=== PATIENT | female | born 1960 | race Caucasian/White ===

== ENCOUNTER 2022-09-06 17:31 | Observation (INO) | payer OTHER ==
[2022-09-06 18:39] LABS: Hematocrit 34.3 % (36.0-45.0); Lymphocytes % 13.4 % (15.3-44.8); MCV 89.8 fL (80-100); MPV 7.7 fL (7.6-11.3); RBC Red Blood Cell Count 3.82 M/uL (3.86-4.86)
[2022-09-06] MEDS ORDERED: ONDANSETRON 4 MG/2 ML VIAL ONE ×2 (19:00→20:42)
[2022-09-06] MEDS ORDERED: NA CHLORIDE 0.9% 1,000 ML ONE (19:00)
[2022-09-06 19:01] LABS: Albumin 3.2 g/dL (3.4-5.0); Bilirubin Total 1.4 mg/dL (0.2-1.0); Protein, Total 6.9 g/dL (6.4-8.2)
[2022-09-06 19:05] LABS: Potassium 2.4 mmol/L (3.5-5.1)
[2022-09-06] MEDS ORDERED: POTASSIUM CL SA 10 MEQ TAB PO ONE (20:10)
[2022-09-06] MEDS ORDERED: KCL 20 MEQ/100 mL IVPB 100 ML IV ONE (20:11)
[2022-09-06] MEDS ORDERED: NA CHLORIDE 0.9% 500 ML ONE (20:11)
--- NOTE | 2022-09-06 21:06 | RAD REPORT ---
EXAM DESCRIPTION: CTAbdomen Pelvis W Contrast - 09/06/2022 8:53 pm CLINICAL HISTORY: lower abdmominal pain, vomiting COMPARISON: <Comparisons> TECHNIQUE: CT of the abdomen and pelvis was performed. All CT scans are performed using dose optimization technique as appropriate and may include automated exposure control or mA/KV adjustment according to patient size. FINDINGS: Lower chest: No acute abnormality. Liver: Cirrhotic liver morphology. Hepatic steatosis. Biliary: No biliary ductal dilatation. Stomach: Linear foreign body in the stomach measuring 2 cm. This is along the nondependent wall of th e stomach. Duodenum: No significant focal abnormality. Pancreas: 11 mm cystic lesion at the pancreatic body. Question 5 mm lesion at the pancreatic tail. No pancreatic ductal dilatation. Spleen: Splenomegaly Adrenal: No suspicious lesions. Kidney/ureter: No hydronephrosis. No renal calculi. Retroperitoneum: No retroperitoneal adenopathy. Vascular: No aneurysm. Splenorenal shunt. Bowel: No significant focal abnormality. No bowel obstruction. Prior appendectomy. Peritoneum: Small volume pelvic free fluid. Bladder: Grossly unremarkable. Reproductive: Hysterectomy. Bones: No acute fracture. Moderate disc height loss at L5-S1. Other: Surgical changes in the pelvis. IMPRESSION: No acute intra-abdominal or pelvic finding. Cirrhotic liver morphology with evidence of portal hypertension. Linear foreign body in the gastric body along the nondependent wall of uncertain etiology. It may be postsurgical versus ingested. Cystic pancreatic body lesion may represent a small intraductal papillary mucinous neoplasm. No prior s are available for comparison. These may represent intraductal papillary mucinous neoplasms (IPMN) w hich are a lesion of low malignant potential. There frequently followed with a 12 month MRCP in the a bsence of any other prior imaging.
--- NOTE | 2022-09-06 21:23 | EDPHYS ---
Physician Documentation [facility] Name: Melissa Garcia Age: 62 yrs Sex: Female : 1960 Arrival Date: 09/06/2022 Time: 17:36 Bed 20 Private MD: VERENICE Physician Vickey Amador HPI: 09/06 17:51 This 62 yrs old Female presents to ER via Wheelchair with complaints of Nausea/Vomiting.jmm 17:51 The patient presents to the emergency department with nausea, diarrhea, abdominal pain, jmm of the suprapubic area. Onset: The symptoms/episode began/occurred gradually, this morning. Possible causes: unknown. The symptoms are aggravated by nothing. The symptoms are alleviated by nothing. Associated signs and symptoms: Pertinent positives: abdominal pain, Pertinent negatives: fever. The patient has not experienced similar symptoms in the past. Historical: - Allergies: 17:43 PENICILLINS; ss 17:43 Keflex; ss 17:43 amlodipine; ss 17:43 Cipro; ss - PMHx: 17:43 pulmonary HTN; Rheumatoid arthritis; Hypothyroidism; ss - Immunization history:: Adult Immunizations unknown. - Social history:: Smoking status: unknown. ROS: 17:51 Constitutional: Negative for fever, chills, and weight loss, Cardiovascular: Negative jmm for chest pain, palpitations, and edema, Respiratory: Negative for shortness of breath, cough, wheezing, and pleuritic chest pain. 17:51 Back: Negative for injury and pain, Skin: Negative for injury, rash, and discoloration, Neuro: Negative for headache, weakness, numbness, tingling, and seizure. 17:51 Abdomen/GI: Positive for abdominal pain. 17:51 All other systems are negative. Exam: 17:51 Constitutional: This is a well developed, well nourished patient who is awake, alert, jmm and in no acute distress. Head/Face: atraumatic. Eyes: EOMI, no conjunctival erythema appreciated ENT: Moist Mucus Membranes Neck: Trachea midline, Supple Chest/axilla: Normal chest wall appearance and motion. Cardiovascular: Regular rate and rhythm. No edema appreciated Respiratory: Normal respirations, no respiratory distress appreciated 17:51 Back: Normal ROM Skin: General appearance color normal MS/ Extremity: Moves all extremities, no obvious deformities appreciated, no edema noted to the lower extremities Neuro: Awake and alert Psych: Behavior is normal, Mood is normal, Patient is cooperative and pleasant 17:51 Abdomen/GI: Inspection: abdomen appears normal, Bowel sounds: normal, Palpation: soft, mild abdominal tenderness, in the suprapubic area. Vital Signs: 17:42 Resp 16; Weight 90.72 kg; Height 5 ft. 4 in. (162.56 cm); ss 17:45 BP 132 / 70; Pulse 83; Temp 98.9(O); Pulse Ox 97% on R/A; ss 19:30 BP 144 / 66; Pulse 82; Resp 18 S; Pulse Ox 98% on R/A; ha1 20:30 BP 140 / 66; Pulse 81; Resp 18 S; Pulse Ox 98% on R/A; ha1 21:30 BP 138 / 66; Pulse 81; Resp 18 S; Pulse Ox 97% on R/A; ha1 22:30 BP 141 / 67; Pulse 80; Resp 17 S; Pulse Ox 97% on R/A; ha1 23:00 BP 140 / 67; Pulse 80; Resp 16 S; Pulse Ox 97% on R/A; ha1 17:42 Body Mass Index 34.33 (90.72 kg, 162.56 cm) ss MDM: 17:51 Patient medically screened. [facility] 19:59 Transition of care: After a detail discussion of the patient's case, care is [facility] transferred to [facility]. 21:19 Differential diagnosis: Nonspecific abd pain, gastritis, cholecystitis, pancreatitis, snw appendicitis. Data reviewed: vital signs, nurses notes, lab test result(s), radiologic studies. Consideration of Admission/Observation Patient was admitted/placed on observation. Management of patient was discussed with the following: Hospitalist: Judy Wallace. Care significantly affected by the following chronic conditions: RA, Cirrhosis, pulmonary htn, hypothyroidism. Counseling: I had a detailed discussion with the patient and/or guardian regarding: the historical points, exam findings, and any diagnostic results supporting the discharge/admit diagnosis, the presence of at least one elevated blood pressure reading (>120/80) during this emergency department visit, lab results, radiology results, the need for outpatient follow up, for definitive care, to return to the emergency department if symptoms worsen or persist or if there are any questions or concerns that arise at home. Counseling: I had a detailed discussion with the patient and/or guardian regarding: the need for further work-up and treatment in the hospital. Response to treatment: There is no appreciated change of the patient's symptoms at this time, remains nauseated. Special discussion:. 09/06 17:55 Order name: CBC with Diff; Complete Time: 18:40 [facility] 09/06 17:55 Order name: CMP; Complete Time: 19:07 [facility] 09/06 17:55 Order name: Lipase; Complete Time: 19:07 [facility] 09/06 17:55 Order name: CT Abd/Pelvis - IV Contrast Only; Complete Time: 21:10 [facility] 09/06 19:36 Order name: Urine Microscopic Only [facility] 09/06 21:24 Order name: SARS RAPID; Complete Time: 22:23 [facility] 09/06 17:55 Order name: IV Saline Lock; Complete Time: 18:53 [facility] 09/06 17:55 Order name: Labs collected and sent; Complete Time: 18:53 [facility] 09/06 19:21 Order name: EKG - Nurse/Tech; Complete Time: 22:49 jm Administered Medications: 19:01 Drug: NS 0.9% 1000 ml Route: IV; Rate: 1 bolus; Site: right antecubital; ph 23:00 Follow up: Response: No adverse reaction; IV Status: Completed infusion; IV Intake: ha1 1000ml 19:02 Drug: Zofran (Ondansetron) 4 mg Route: IVP; Site: right antecubital; ph 19:02 Follow up: Response: No adverse reaction ph 20:35 Drug: Potassium Chloride 20 mEq Route: IV; Rate: calculated rate; Site: right ha1 antecubital; 23:00 Follow up: Response: No adverse reaction; IV Status: Infusion continued; IV Intake: [id number] 20:43 Drug: Zofran (Ondansetron) 4 mg Route: IVP; Site: right antecubital; ha1 21:10 Follow up: Response: No adverse reaction; Nausea is decreased ha1 21:46 Drug: Potassium Chloride Liquid 40 mEq Route: PO; ha1 22:10 Follow up: Response: No adverse reaction ha1 Disposition Summary: 09/06/22 21:22 Hospitalization Ordered Hospitalization Status: Observation snw Provider: Ruth Clement Location: Telemetry/MedSurg (observation) snw Condition: Stable snw Problem: an acute exacerbation snw Symptoms: are unchanged snw Bed/Room Type: Standard snw Room Assignment: 218(09/06/22 22:21) vc1 Diagnosis - Nausea with vomiting, unspecified snw - Hypokalemia snw Forms: - Medication Reconciliation Form snw - SBAR form snw Signatures: Dispatcher [employer] EDMS Vianey Granado, BAR HOST/HOSTESS-C BAR HOST/HOSTESS-Csnw Jasper Smith PA PA jmm Smirch, Shelby, RN RN ss Shante Aguilar RN RN ph Viky Hernandez RN RN vc1 Petrona Becker RN RN ha1 Corrections: (The following items were deleted from the chart) 22:21 21:22 snw 1
--- NOTE | 2022-09-06 21:23 | ER ---
Nurse's Notes [facility] Name: Melissa Garcia Age: 62 yrs Sex: Female : 1960 Arrival Date: 09/06/2022 Time: 17:36 Bed 20 Private MD: Diagnosis: Nausea with vomiting, unspecified;Hypokalemia Presentation: 09/06 17:42 Chief complaint: Patient states: N/V/D with abd cramping that began at 0300 this morning. Coronavirus screen: Client denies travel out of the [place] in the last 14 days. Ebola Screen: Patient denies exposure to infectious person. Patient denies travel to an Ebola-affected area in the 21 days before illness onset. Initial Sepsis Screen: Does the patient meet any 2 criteria? No. Patient's initial sepsis screen is negative. Does the patient have a suspected source of infection? No. Patient's initial sepsis screen is negative. Risk Assessment: Do you want to hurt yourself or someone else? Patient reports no desire to harm self or others. Onset of symptoms was September 06, 2022. 17:42 Method Of Arrival: Wheelchair ss 17:42 Acuity: BELLA 3 ss Historical: - Allergies: 17:43 PENICILLINS; ss 17:43 Keflex; ss 17:43 amlodipine; ss 17:43 Cipro; ss - PMHx: 17:43 pulmonary HTN; Rheumatoid arthritis; Hypothyroidism; ss - Immunization history:: Adult Immunizations unknown. - Social history:: Smoking status: unknown. Screenin:02 [facility] ED Fall Risk Assessment (Adult) History of falling in the last 3 months, ph including since admission No falls in past 3 months (0 pts) Confusion or Disorientation No (0 pts) Intoxicated or Sedated No (0 pts) Impaired Gait No (0 pts) Mobility Assist Device Used No (0 pt) Altered Elimination No (0 pt) Score/Fall Risk Level 0 - 2 = Low Risk Oriented to surroundings, Maintained a safe environment, Hourly rounding (assess needs \T\ fall precautionary measures) done. Abuse screen: Denies threats or abuse. Denies injuries from another. Nutritional screening: No deficits noted. Tuberculosis screening: No symptoms or risk factors identified. Assessment: 19:02 General: Appears in no apparent distress. comfortable, Behavior is calm, cooperative, ph appropriate for age, Denies fever, chills. Pain: Complains of pain in right lower quadrant and left lower quadrant. Neuro: Level of Consciousness is awake, alert, obeys commands, Oriented to person, place, time, situation. Cardiovascular: Capillary refill < 3 seconds in bilateral fingers Patient's skin is warm and dry. Respiratory: Airway is patent Respiratory effort is even, unlabored, Respiratory pattern is regular, symmetrical. GI: Abdomen is non-distended, Reports lower abdominal pain, diarrhea, nausea, vomiting. Derm: Skin is healthy with good turgor, Skin is pink, warm \T\ dry. Musculoskeletal: Circulation, motion, and sensation intact. Range of motion: intact in all extremities. 19:30 General: Appears comfortable, Behavior is calm, cooperative. Pain: Complains of pain in ha1 abdomen Pain does not radiate. Pain currently is 4 out of 10 on a pain scale. at worst was 8 out of 10 on a pain scale. Quality of pain is described as crampy. Neuro: Level of Consciousness is awake, alert, obeys commands, Oriented to person, place, time, situation. Cardiovascular: Capillary refill < 3 seconds Patient's skin is warm and dry. Respiratory: Airway is patent Respiratory effort is even, unlabored, Respiratory pattern is regular, symmetrical. GI: Abdomen is non-distended, obese, Bowel sounds present X 4 quads. Reports lower abdominal pain, diarrhea, nausea, vomiting. : No signs and/or symptoms were reported regarding the genitourinary system. EENT: No signs and/or symptoms were reported regarding the EENT system. Musculoskeletal: Circulation, motion, and sensation intact. 20:15 Reassessment: Patient and/or family updated on plan of care and expected duration. Pain ha1 level reassessed. Patient is alert, oriented x 3, equal unlabored respirations, skin warm/dry/pink. reports nausea. notified care provider. 20:43 Reassessment: going to CT. ha1 21:30 Reassessment: Patient and/or family updated on plan of care and expected duration. Pain ha1 level reassessed. Patient is alert, oriented x 3, equal unlabored respirations, skin warm/dry/pink. care provider and family member in the room. 22:30 Reassessment: Patient and/or family updated on plan of care and expected duration. Pain ha1 level reassessed. Patient is alert, oriented x 3, equal unlabored respirations, skin warm/dry/pink. Patient states feeling better. Patient states symptoms have improved. 23:30 Reassessment: Patient and/or family updated on plan of care and expected duration. Pain ha1 level reassessed. Patient is alert, oriented x 3, equal unlabored respirations, skin warm/dry/pink. Vital Signs: 17:42 Resp 16; Weight 90.72 kg; Height 5 ft. 4 in. (162.56 cm); ss 17:45 BP 132 / 70; Pulse 83; Temp 98.9(O); Pulse Ox 97% on R/A; ss 19:30 BP 144 / 66; Pulse 82; Resp 18 S; Pulse Ox 98% on R/A; ha1 20:30 BP 140 / 66; Pulse 81; Resp 18 S; Pulse Ox 98% on R/A; ha1 21:30 BP 138 / 66; Pulse 81; Resp 18 S; Pulse Ox 97% on R/A; ha1 22:30 BP 141 / 67; Pulse 80; Resp 17 S; Pulse Ox 97% on R/A; ha1 23:00 BP 140 / 67; Pulse 80; Resp 16 S; Pulse Ox 97% on R/A; ha1 17:42 Body Mass Index 34.33 (90.72 kg, 162.56 cm) ED Course: 17:36 Patient arrived in ED. rg4 17:43 Triage completed. ss 17:43 Arm band placed on right wrist. 17:46 Jasper Smith PA is PHCP. [facility] 17:46 Vickey Amador MD is Attending Physician. [facility] 17:46 Shante Aguilar, LYN is Primary Nurse. ph 18:35 Initial lab(s) drawn, by nv, sent to lab. Inserted saline lock: 22 gauge in right ph antecubital area, using aseptic technique. Blood collected. 19:04 Patient has correct armband on for positive identification. Placed in gown. Bed in low ph position. Call light in reach. Side rails up X 1. Pulse ox on. NIBP on. Door closed. Noise minimized. Warm blanket given. 19:13 Primary Nurse role handed off by Shante Aguilar, LYN mw2 19:19 Petrona Becker, RN is Primary Nurse. ha1 19:47 Inserted saline lock: 22 gauge in left wrist, using aseptic technique. ll3 20:54 CT Abd/Pelvis - IV Contrast Only In Process Unspecified. EDMS 21:10 PHCP role handed off by Jasper Smith PA snw 21:10 Vianey Granado FNP-C is PHCP. snw 21:21 Ruth Clement MD is Hospitalizing Provider. snw 21:46 SARS RAPID Sent. ha1 23:48 No provider procedures requiring assistance completed. ha1 23:48 Patient admitted, IV remains in place. ha1 Administered Medications: 19:01 Drug: NS 0.9% 1000 ml Route: IV; Rate: 1 bolus; Site: right antecubital; ph 23:00 Follow up: Response: No adverse reaction; IV Status: Completed infusion; IV Intake: ha1 1000ml 19:02 Drug: Zofran (Ondansetron) 4 mg Route: IVP; Site: right antecubital; ph 19:02 Follow up: Response: No adverse reaction ph 20:35 Drug: Potassium Chloride 20 mEq Route: IV; Rate: calculated rate; Site: right ha1 antecubital; 23:00 Follow up: Response: No adverse reaction; IV Status: Infusion continued; IV Intake: [id number] 20:43 Drug: Zofran (Ondansetron) 4 mg Route: IVP; Site: right antecubital; ha1 21:10 Follow up: Response: No adverse reaction; Nausea is decreased ha1 21:46 Drug: Potassium Chloride Liquid 40 mEq Route: PO; ha1 22:10 Follow up: Response: No adverse reaction ha1 Medication: 19:04 VIS not applicable for this client. ph Intake: 23:00 IV: 70ml; Total: 70ml. ha1 23:00 IV: 1000ml; Total: 1070ml. ha1 Outcome: 21:22 Decision to Hospitalize by Provider. snw 23:48 Patient left the ED. ha1 23:48 Admitted to Med/surg accompanied by tech, via wheelchair, with chart. ha1 23:48 Condition: stable ha1 23:48 Discharge instructions given to patient, Instructed on the need for admit, Demonstrated understanding of instructions. Signatures: Dispatcher [employer] EDLA Vianey Granado FNP-C MANAGER FOREIGN-Csnw Jasper Smith PA PA jmm Smirch, Shelby, RN RN ss Shante Aguilar RN RN Elena Park 4 Ceasar Garner 2 Apryl Piña RN RN 3 Petrona Becker RN RN ha1 Corrections: (The following items were deleted from the chart) 20:44 20:43 Reassessment: Patient and/or family updated on plan of care and expected ha1 duration. Pain level reassessed. Patient is alert, oriented x 3, equal unlabored respirations, skin warm/dry/pink. reports nausea. notified care provider ha1
--- NOTE | 2022-09-06 21:46 | P.HP ---
Certification for Inpatient Patient admitted to: Observation With expected LOS: <2 Midnights Patient will require the following post-hospital care: None Practitioner: I am a practitioner with admitting privileges, knowledge of patient current condition, hospital course, and medical plan of care. Services: Services provided to patient in accordance with Admission requirements found in Title 42 Section 412.3 of the Code of Federal Regulations Patient History Date of Service: 09/06/22 Reason for admission: Dehydration, Hypokalemia History of Present Illness: Patient is a 62 year old female with past medical history of cirrhosis with portal hypertension, RA, hypothyroidism who presented to the emergency department with complaints of abdominal cramping, nausea, vomiting, and diarrhea that began in the middle of the night. Patient reports that this happens to her frequently. She sees a caddymaster in [place]. Today her potassium is 2.4. CT abdomen pelvis did not show any new findings. She received IV and PO potassium, IV fluids, and antiemetics in the ED. Patient is admitted for observation. Home medications list reviewed: Yes - Past Medical/Surgical History Diabetic: No -: Cirrhosis -: Pulmonary Hypertension -: Rheumatoid Arthritis -: Hypothyroidism -: Cholecystectomy -: Appendectomy -: Hysterectomy -: Pancreatic Biopsies Psychosocial/ Personal History: Patient is . - Family History Family History: Reviewed- Non-Contributory - Social History Smoking Status: Never smoker Alcohol use: No CD- Drugs: No Caffeine use: No Place of Residence: Home Review of Systems Gastrointestinal: Nausea, Vomiting, Abdominal Pain, Diarrhea Physical Examination - Vital Signs Temperature: 98.9 F Blood Pressure: 140/66 Pulse: 81 Respirations: 18 Pulse Ox (%): 98 - Physical Exam General: Alert, In no apparent distress HEENT: Atraumatic, Other (Dry mucous membranes), EOMI, Sclerae nonicteric Neck: Supple, 2+ carotid pulse no bruit Respiratory: Clear to auscultation bilaterally, Normal air movement Cardiovascular: Regular rate/rhythm, Normal S1 S2 Gastrointestinal: Normal bowel sounds, No tenderness Musculoskeletal: No tenderness Integumentary: No rashes Neurological: Normal speech, Normal affect - Studies Laboratory Data (last 24 hrs) 09/06/22 16:25: Sodium 143, Potassium 2.4 L*, BUN 7, Creatinine 0.50 L, Glucose 105, Total Bilirubin 1.4 H, AST 68 H, ALT 40, Alkaline Phosphatase 83, Lipase 133 09/06/22 16:25: WBC 7.50, Hgb 12.0, Hct 34.3 L, Plt Count 152 Assessment and Plan - Problems (Diagnosis) (1) Hypokalemia Current Visit: Yes Status: Acute (2) Dehydration Current Visit: Yes Status: Acute (3) Cirrhosis of liver Current Visit: Yes Status: Chronic Qualifiers: Hepatic cirrhosis type: unspecified hepatic cirrhosis (4) Portal hypertension Current Visit: Yes Status: Chronic (5) Hypothyroidism Current Visit: Yes Status: Chronic Qualifiers: Hypothyroidism type: acquired Qualified Code(s): E03.9 - Hypothyroidism, unspecified - Plan Patient is admitted for observation for further management of hypokalemia/dehydration. Continue with IV fluids, IV potassium, and PO potassium as tolerated. Antiemetics as needed. Clear liquid diet, advance as tolerated. Monitor on telemetry. No EKG changes noted at this point. Reconcile and continue home medications. Full code. Discharge Plan: Home Plan to discharge in: 24 Hours - Advance Directives Does patient have a Living Will: No Does patient have a Durable POA for Healthcare: No - Code Status/Comfort Care Code Status Assessed: Yes Code Status: Full Code Physician Review: Patient Assessed, Agree with Above Assessment and Plan Critical Care: No Time Spent Managing Pts Care (In Minutes): 50
[2022-09-06 22:13] LABS: SARS-CoV-2 Antigen Rapid Res Negative (Negative)
[2022-09-06 23:42] VITALS: BMI 33.8
[2022-09-06] MEDS ORDERED: TRAZODONE 50 MG TABLET PO PRN (23:45)
[2022-09-06] MEDS: NS KCL 40MEQ 40 MEQ/1,000 ML BAG IV SCH (23:45)
[2022-09-06] MEDS ORDERED: POTASSIUM 25 MEQ EFFERV TAB PO ONE (23:45)
[2022-09-07 00:03] VITALS: O2SAT 98
[2022-09-07] MEDS ORDERED: KCL 20 MEQ/100 mL IVPB 100 ML IV ONE ×2 (00:12→05:40)
[2022-09-07] MEDS ORDERED: NA CHLORIDE 0.9% 1,000 ML ONE (00:13)
[2022-09-07] MEDS ORDERED: POTASSIUM 25 MEQ EFFERV TAB PO ONE ×2 (00:38→10:26)
[2022-09-07] MEDS ORDERED: PROMETHAZINE INJ 25 MG/ML AMP IV ONE (01:14)
[2022-09-07] MEDS: ONDANSETRON 4 MG/2 ML VIAL IV PRN ×2 (03:03→09:23)
[2022-09-07] MEDS ORDERED: ACETAMINOPHEN 500 MG TAB PO ONE ×2 (04:28→16:21)
[2022-09-07 06:53] LABS: Hematocrit 33.2 % (36.0-45.0); Lymphocytes % 13.7 % (15.3-44.8); MCV 91.8 fL (80-100); MPV 8.2 fL (7.6-11.3); RBC Red Blood Cell Count 3.62 M/uL (3.86-4.86)
[2022-09-07 07:16] LABS: Phosphorus 1.5 mg/dL (2.5-4.9)
[2022-09-07] MEDS ORDERED: HYDROCORTISONE SUC 100 MG INJ IV ONE (10:26)
[2022-09-07] MEDS ORDERED: METOCLOPRAMIDE 10 MG/2mL INJ IV SCH ×2 (12:00→16:30)
[2022-09-07] MEDS: NS KCL 40MEQ 40 MEQ/1,000 ML BAG IV SCH (12:33)
[2022-09-07 14:46] LABS: Potassium 3.3 mmol/L (3.5-5.1)
[2022-09-07] MEDS ORDERED: IBUPROFEN 400 MG TAB PO ONE (19:53)
[2022-09-07 20:23] VITALS: BP 146/73
[2022-09-07 21:29] VITALS: TEMP 99.8
== END 2022-09-07 21:15 | disposition home or self-care (01) ==
LOC: ER 17:31 → ERHOLD 21:40 → 2ND 23:03
PROVIDERS: ADMIT Hospitalist; ATTEND Hospitalist
DX: E86.0 Dehydration (principal); E87.6 Hypokalemia; K74.60 Unspecified cirrhosis of liver; K76.6 Portal hypertension; M06.9 Rheumatoid arthritis, unspecified; E03.9 Hypothyroidism, unspecified; Z20.822 Contact with and (suspected) exposure to COVID-19
CPT/HCPCS: 96365; 96361; 85025 ×2; 80048 ×2; 36415; 83735; 84100; 83690; 80053; 82533; 82088; 84244; 74177; 96375; 99285; 96366; 87811; Q9967; J2765 ×2; J2550; J3480 ×3; J7040; J7030 ×2; J1720; J2405 ×4; G0378

== ENCOUNTER 2022-09-14 10:46 | Inpatient (IN) | payer OTHER ==
[2022-09-14] MEDS ORDERED: TENECTEPLASE 50 MG/10 ML VIAL IV ONE ×2 (11:02→11:05)
--- NOTE | 2022-09-14 11:10 | RAD REPORT ---
EXAM DESCRIPTION: CT - Ct Stroke Brain Wo Cont - 09/14/2022 11:00 am CLINICAL HISTORY: dysarthria COMPARISON: none TECHNIQUE: Computed axial tomography of the head was obtained. All CT scans are performed using dose optimization technique as appropriate and may include automated exposure control or mA/KV adjustment according to patient size. FINDINGS: An intracranial bleed is not seen . The ventricles are normal in caliber. No extra-axial fluid collection is noted. No significant hypodensity within the brain noted Fluid within the sinuses/ mastoids is not seen. IMPRESSION: No acute intracranial abnormality is seen. If patient's symptoms persist MRI of the bra in would be recommended Dr Cazares of the emergency room was notified at 11:05 a.m. September 14, 2022
[2022-09-14 11:22] LABS: Absolute Lymphocytes (CBC) 1.2 K/uL (0.7-4.9); Hematocrit 38.4 % (36.0-45.0); Lymphocytes % 18.1 % (15.3-44.8); MCV 90.5 fL (80-100); MPV 8.8 fL (7.6-11.3); RBC Red Blood Cell Count 4.24 M/uL (3.86-4.86)
[2022-09-14 11:28] LABS: Protime INR 1.32
[2022-09-14 11:56] LABS: Urine Blood Trace-intact (Negative); Urine Glucose Negative (Negative); Urine Protein Negative (Negative); Urine Specific Gravity 1.015 (1.005-1.030); Urine pH 7.5 (5.0-7.0)
--- NOTE | 2022-09-14 11:59 | RAD REPORT ---
EXAM DESCRIPTION: Herlinda Single View09/14/2022 11:30 am CLINICAL HISTORY: Hypertension slurred speech COMPARISON: none FINDINGS: The lungs appear clear of acute infiltrate. The heart is borderline enlarged IMPRESSION: No acute abnormalities displayed
[2022-09-14 12:36] LABS: Albumin 3.2 g/dL (3.4-5.0); Bilirubin Direct 0.4 mg/dL (0-0.2); Bilirubin Total 1.4 mg/dL (0.2-1.0); Magnesium 2.2 mg/dL (1.6-2.4); Protein, Total 6.5 g/dL (6.4-8.2); Troponin High Sensitivity 6.9 pg/mL (<58.9)
[2022-09-14 12:37] LABS: Potassium 2.5 mmol/L (3.5-5.1)
--- NOTE | 2022-09-14 12:40 | RAD REPORT ---
EXAM DESCRIPTION: Roni Angio09/14/2022 12:18 pm CLINICAL HISTORY: Slurred speech COMPARISON: None TECHNIQUE: 50 cc Isovue 370 was administered intravenously. 3D MIP reconstruction performed All CT scans are performed using dose optimization technique as appropriate and may include automated exposure control or mA/KV adjustment according to patient size. FINDINGS: Great vessels unremarkable The common carotid, internal carotid and external carotid arteries bilaterally do not demonstrate mago que. The distal right vertebral artery is hypoplastic and appears to terminate into the PICA No dissection seen. IMPRESSION: No significant abnormality is displayed NASCET criteria used. Mild 0-49% stenosis Moderate 50-69% stenosis Severe 70-99% stenosis
--- NOTE | 2022-09-14 12:41 | ER ---
Nurse's Notes [facility] Name: Melissa Garcia Age: 62 yrs Sex: Female : 1960 Arrival Date: 09/14/2022 Time: 10:47 Bed 7 Private MD: Diagnosis: Aphasia;Dysarthria;UTI/ Urinary tract infection, site not specified Presentation: 09/14 10:48 Onset of symptoms was September 14, 2022 at 09:00. aa5 10:48 An acute neurological deficit is present. Pre-hospital glucose is not applicable to aa5 this patient. Initial Sepsis Screen: Does the patient meet any 2 criteria? HR > 90 bpm. Does the patient have a suspected source of infection? No. Patient's initial sepsis screen is negative. Risk Assessment: Do you want to hurt yourself or someone else? Patient reports no desire to harm self or others. 10:48 Acuity: BELLA 2 aa5 10:48 Chief complaint: Patient states: woke up at 0830 and began having difficulty speaking aa5 at 0900. Pt states "I am having trouble speaking and finding words". Speech is clear but slow. No numbness/tingling, communications engineering technician are weak bilaterally, no arm/leg drift noted, no facial droop noted. Recently admitted for diarrhea 8 days ago. Coronavirus screen: At this time, the client does not indicate any symptoms associated with coronavirus-19. Ebola Screen: Patient denies travel to an Ebola-affected area in the 21 days before illness onset. 10:48 Method Of Arrival: Wheelchair aa5 Triage Assessment: 11:20 The onset of the patients symptoms was September 14, 2022 at 09:00. General: Appears in hb no apparent distress. Behavior is calm, cooperative. Pain: Denies pain. EENT: No signs and/or symptoms were reported regarding the EENT system. Neuro: Level of Consciousness is awake, alert, obeys commands, Oriented to person, place, time, situation, Reports difficulty speaking. Cardiovascular: Patient's skin is warm and dry. Respiratory: Respiratory effort is even, unlabored, Respiratory pattern is regular, symmetrical. GI: No signs and/or symptoms were reported involving the gastrointestinal system. : No signs and/or symptoms were reported regarding the genitourinary system. Derm: Skin is pink, warm \\T\\ dry. Musculoskeletal: No signs and/or symptoms reported regarding the musculoskeletal system. Stroke Activation: Symptom onset < 3 hours Physician: Stroke Attending; Name: ; Notified At: ; Arrived At: Physician: Chief Stroke Resident; Name: ; Notified At: ; Arrived At: Physician: Stroke Resident; Name: ; Notified At: ; Arrived At: Physician: ED Attending; Name: ; Notified At: ; Arrived At: Physician: ED Resident; Name: ; Notified At: ; Arrived At: Historical: - Allergies: 10:49 amlodipine; ll1 10:49 Cipro; ll1 10:49 Keflex; ll1 10:49 PENICILLINS; ll1 - PMHx: 10:49 Hypothyroidism; pulmonary HTN; Rheumatoid Arthritis; ll1 - Immunization history:: Adult Immunizations up to date. - Social history:: Smoking status: . Screenin:18 [facility] ED Fall Risk Assessment (Adult) Score/Fall Risk Level 3 or more points = High hb Risk Oriented to surroundings, Maintained a safe environment. Abuse screen: Denies threats or abuse. Denies injuries from another. Nutritional screening: No deficits noted. Tuberculosis screening: No symptoms or risk factors identified. 11:22 Patient has been NPO before screening. The patient is alert, able to follow commands. hb The patient exhibits slurred or garbled speech. Provider notified of indication for Speech Therapy consult. 13:22 Patient has been NPO before screening. The patient is alert, able to follow commands. hb The patient does not exhibit slurred or garbled speech The patient is not exhibiting difficulty speaking. The patient does not exhibit difficulty understanding words. The patient is able to swallow own secretions with no drooling or need for suction. Patient tolerated one teaspoon of water. No drooling, immediate coughing, gurgling, or clearing of the throat was noted. The patient tolerated 90mL of water. No drooling, immediate coughing, gurgling, or clearing of the throat was noted. The patient passed the bedside swallow screening. Oral medications may be given as ordered. Contact Physician for further diet orders. Assessment: 10:55 Reassessment: Pt to CT via stretcher, accompanied by Lupis Pickard RN. aa5 11:20 General: See triage assessment. hb 11:30 Reassessment: TNK administered at 1118, see paper chart for VS and neuro check hb flowsheet. 12:14 Reassessment: Reassessment: Patient appears in no apparent distress at this time. hb Patient and/or family updated on plan of care and expected duration. Pain level reassessed. 13:21 Reassessment: Dysarthria resolved, repeated swallow screen, pt passed. Water provided hb as requested. Pt tolerated well. 14:01 Reassessment: Dr. Granda at bedside. hb 14:10 Reassessment: Per Dr. Ortiz only ice chips for now. hb 15:30 Reassessment: Patient appears in no apparent distress at this time. Patient and/or hb family updated on plan of care and expected duration. Pain level reassessed. Vital Signs: 10:48 BP 146 / 71; Pulse 95; Resp 18 S; Temp 97.8(TE); Pulse Ox 99% on R/A; aa5 11:09 Weight 86 kg (M); hb 11:23 BP 131 / 75; Pulse 90; Resp 17; Pulse Ox 99% on R/A; hb 13:03 BP 139 / 78; Pulse 83; Resp 15; Pulse Ox 100% on R/A; Pain 0/10; hb 16:45 BP 129 / 77; Pulse 86; Resp 14; Pulse Ox 100% on R/A; Pain 0/10; hb NIH Stroke Scale Scores: 10:56 NIHSS Score: 2 kdr 11:18 NIHSS Score: 4 hb 11:19 NIHSS Score: 4 kdr ED Course: 10:47 Patient arrived in ED. as 10:48 Benton Cazares MD is Attending Physician. kdr 10:49 Arm band placed on Patient placed in an exam room, on a stretcher. ll1 10:56 Rodrick Bonilla, RN is Primary Nurse. ll1 11:00 Triage completed. aa5 11:09 Inserted saline lock: 22 gauge in right antecubital area, using aseptic technique. hb Blood collected. 11:18 Patient has correct armband on for positive identification. hb 11:23 Primary Nurse role handed off by Rodrick Bonilla, RN hb 11:23 Charisse Suarez, LYN is Primary Nurse. hb 12:14 Urine Culture Sent. hb 12:39 Shady Granda MD is Hospitalizing Provider. kdr 13:28 SARS RAPID Sent. hb 14:32 Cleaned of incontinence. Linen changed. Brief replaced. hb 15:42 Cleaned of incontinence. Linen changed. Brief replaced. hb 16:44 No provider procedures requiring assistance completed. Patient admitted, IV remains in hb place. 09/15 07:16 Primary Nurse role handed off by Charisse Suarez, RN bp 07:16 Valentin Marcum, RN is Primary Nurse. bp 09:42 Cleaned of incontinence. Linen changed. Purewick was not in place - applied purewick ld1 back to proper position. Cleaned of incontinence, Repositioned patient. Pt denies concerns at this time. at bedside, pt trying to rest at this time. Administered Medications: 09/14 11:18 Drug: TNK FOR STROKE - Tenecteplase 0.25 mg/kg {Co-Signature: shola1 (Rodrick Bonilla RN).} Route: IV; Rate: per protocol; Site: right antecubital; 13:33 Drug: Bactrim (trimethoprim-sulfamethoxazole) (160 mg-800 mg (DS) 1 tablet Route: PO; hb 13:55 Drug: Potassium Chloride 20 mEq Route: IV; Rate: calculated rate; Site: right hb antecubital; 13:55 Drug: Potassium Chloride Liquid 40 mEq Route: PO; hb Medication: 11:22 VIS not applicable for this client. hb Point of Care Testing: Blood Glucose: 10:49 Blood Glucose: 118 mg/dL; hb Ranges: Outcome: 12:40 Decision to Hospitalize by Provider. kdr 16:44 Admitted to ER Hold. Please see [facility] for further documentation. hb 16:44 Condition: stable 16:44 Instructed on the need for admit, Demonstrated understanding of instructions. 09/15 13:53 Patient left the ED. bp NIH Stroke Scale - NIH Stroke Score Date: 09/14/2022 Time: 10:56 Total Score = 2 1a. Level of Consciousness (LOC) - 0(Alert) 1b. Level of Consciousness (LOC) (Month \\T\\ Age) - 0(Both) 1c. LOC Commands (Open \\T\\ Closes Eyes/Computer Education Teacher) - 0(Both) 2. Best Gaze (Lateral Gaze Paresis) - 0(Normal) 3. Visual Field Loss - 0(No visual loss) 4. Facial Palsy - 0(Normal) 5a. Left Arm: Motor (10-second hold) - 0(No drift) 5b. Right Arm: Motor (10-second hold) - 0(No drift) 6a. Left Leg: Motor (5-second hold - always test supine) - 0(No drift) 6b. Right Leg: Motor (5-second hold - always test supine) - 0(No drift) 7. Limb Ataxia (finger/nose \\T\\ heel/thomson - test with eyes open) - 0(Absent) 8. Sensory Loss (pinprick arms/legs/face) - 0(Normal) 9. Best Language: Aphasia (description/naming/reading) - 1(Mild to moderate aphasia) 10. Dysarthria (speech clarity - read or repeat words) - 1(Mild to Moderate) 11. Extinction and Inattention (visual/tactile/auditory/spatial/personal) - 0(No abnormality) Initials: [facility] NIH Stroke Scale - NIH Stroke Score Date: 09/14/2022 Time: :18 Total Score = 4 1a. Level of Consciousness (LOC) - 0(Alert) 1b. Level of Consciousness (LOC) (Month \\T\\ Age) - 0(Both) 1c. LOC Commands (Open \\T\\ Closes Eyes/Computer Education Teacher) - 0(Both) 2. Best Gaze (Lateral Gaze Paresis) - 0(Normal) 3. Visual Field Loss - 0(No visual loss) 4. Facial Palsy - 0(Normal) 5a. Left Arm: Motor (10-second hold) - 0(No drift) 5b. Right Arm: Motor (10-second hold) - 1(Drift) 6a. Left Leg: Motor (5-second hold - always test supine) - 0(No drift) 6b. Right Leg: Motor (5-second hold - always test supine) - 1(Drift) 7. Limb Ataxia (finger/nose \\T\\ heel/thomson - test with eyes open) - 0(Absent) 8. Sensory Loss (pinprick arms/legs/face) - 0(Normal) 9. Best Language: Aphasia (description/naming/reading) - 1(Mild to moderate aphasia) 10. Dysarthria (speech clarity - read or repeat words) - 1(Mild to Moderate) 11. Extinction and Inattention (visual/tactile/auditory/spatial/personal) - 0(No abnormality) Initials: NIH Stroke Scale - NIH Stroke Score Date: 09/14/2022 Time: : Total Score = 4 1a. Level of Consciousness (LOC) - 0(Alert) 1b. Level of Consciousness (LOC) (Month \\T\\ Age) - 0(Both) 1c. LOC Commands (Open \\T\\ Closes Eyes/Computer Education Teacher) - 0(Both) 2. Best Gaze (Lateral Gaze Paresis) - 0(Normal) 3. Visual Field Loss - 0(No visual loss) 4. Facial Palsy - 0(Normal) 5a. Left Arm: Motor (10-second hold) - 0(No drift) 5b. Right Arm: Motor (10-second hold) - 1(Drift) 6a. Left Leg: Motor (5-second hold - always test supine) - 0(No drift) 6b. Right Leg: Motor (5-second hold - always test supine) - 1(Drift) 7. Limb Ataxia (finger/nose \\T\\ heel/thomson - test with eyes open) - 0(Absent) 8. Sensory Loss (pinprick arms/legs/face) - 0(Normal) 9. Best Language: Aphasia (description/naming/reading) - 1(Mild to moderate aphasia) 10. Dysarthria (speech clarity - read or repeat words) - 1(Mild to Moderate) 11. Extinction and Inattention (visual/tactile/auditory/spatial/personal) - 0(No abnormality) Initials: kdr Signatures: Benton Cazares MD MD kdr Martinez, Amelia as Calderon, Audri, LYN RN aa5 Charisse Suarez RN RN hb Valentin Marcum RN RN bp Lewis, Lynsay, RN RN ll1 Tory Hollins RN RN ld1 Rodrick Bonilla RN ll1 Corrections: (The following items were deleted from the chart) 09/14 14:07 12:14 Reassessment: hb hb
--- NOTE | 2022-09-14 12:41 | EDPHYS ---
Physician Documentation [facility] Name: Melissa Garcia Age: 62 yrs Sex: Female : 1960 Arrival Date: 09/14/2022 Time: 10:47 Bed 7 Private MD: ED Physician Benton Cazares HPI: 09/14 17:49 This 62 yrs old Female presents to ER via Wheelchair with complaints of Trouble kdr Talking, Weakness. 17:49 The patient presents to the emergency department with weakness of the right upper kdr extremity, right lower extremity, that is mild, a speech or higher order brain function problem, aphasia, that is mild, difficulty standing, difficult walking. Onset: The symptoms/episode began/occurred suddenly, at 09:00. 17:50 Context: occurred at home, occurred while the patient was at rest, eating. Associated kdr signs and symptoms: The patient has no apparent associated signs or symptoms. Severity of symptoms: At their worst the symptoms were moderate in the emergency department the symptoms are unchanged. Patient's baseline: Neuro: alert and fully oriented, Motor: no deficits, Ambulation: walks without assistance, Speech: normal for age, The patient has a previous history of Hypothyroidism, pulmonary hypertension, rheumatoid arthritis. Current symptoms: confusion, dysphasia. The patient has not experienced similar symptoms in the past. The patient has not recently seen a physician. Historical: - Allergies: 10:49 amlodipine; ll1 10:49 Cipro; ll1 10:49 Keflex; ll1 10:49 PENICILLINS; ll1 - PMHx: 10:49 Hypothyroidism; pulmonary HTN; Rheumatoid Arthritis; ll1 - Immunization history:: Adult Immunizations up to date. - Social history:: Smoking status: . ROS: 17:50 Constitutional: Negative for fever, chills, and weight loss, Eyes: Negative for injury, kdr pain, redness, and discharge, Neck: Negative for injury, pain, and swelling, Cardiovascular: Negative for chest pain, palpitations, and edema, Respiratory: Negative for shortness of breath, cough, wheezing, and pleuritic chest pain, Abdomen/GI: Negative for abdominal pain, nausea, vomiting, diarrhea, and constipation, Back: Negative for injury and pain, : Negative for injury, bleeding, discharge, and swelling, MS/Extremity: Negative for injury and deformity, Skin: Negative for injury, rash, and discoloration, Psych: Negative for depression, anxiety, suicide ideation, homicidal ideation, and hallucinations, Allergy/Immunology: Negative for hives, rash, and allergies, Endocrine: Negative for neck swelling, polydipsia, polyuria, polyphagia, and marked weight changes, Hematologic/Lymphatic: Negative for swollen nodes, abnormal bleeding, and unusual bruising. 17:50 Neuro: Positive for speech changes, weakness, of the right arm and right leg. Exam: 17:50 Constitutional: This is a well developed, well nourished patient who is awake, alert, kdr and in no acute distress. Head/Face: Normocephalic, atraumatic. Eyes: Pupils equal round and reactive to light, extra-ocular motions intact. Lids and lashes normal. Conjunctiva and sclera are non-icteric and not injected. Cornea within normal limits. Periorbital areas with no swelling, redness, or edema. Neck: Trachea midline, no thyromegaly or masses palpated, and no cervical lymphadenopathy. Supple, full range of motion without nuchal rigidity, or vertebral point tenderness. No Meningismus. Chest/axilla: Normal chest wall appearance and motion. Nontender with no deformity. No lesions are appreciated. Cardiovascular: Regular rate and rhythm with a normal S1 and S2. No gallops, murmurs, or rubs. Normal PMI, no JVD. No pulse deficits. Respiratory: Lungs have equal breath sounds bilaterally, clear to auscultation and percussion. No rales, rhonchi or wheezes noted. No increased work of breathing, no retractions or nasal flaring. Abdomen/GI: Soft, non-tender, with normal bowel sounds. No distension or tympany. No guarding or rebound. No evidence of tenderness throughout. Back: No spinal tenderness. No costovertebral tenderness. Full range of motion. Skin: Warm, dry with normal turgor. Normal color with no rashes, no lesions, and no evidence of cellulitis. MS/ Extremity: Pulses equal, no cyanosis. Neurovascular intact. Full, normal range of motion. Neuro: Awake and alert, GCS 15, oriented to person, place, time, and situation. Cranial nerves II-XII grossly intact. Motor strength 5/5 in all extremities. Sensory grossly intact. Cerebellar exam normal. Normal gait. Psych: Awake, alert, with orientation to person, place and time. Behavior, mood, and affect are within normal limits. Vital Signs: 10:48 BP 146 / 71; Pulse 95; Resp 18 S; Temp 97.8(TE); Pulse Ox 99% on R/A; aa5 11:09 Weight 86 kg (M); hb 11:23 BP 131 / 75; Pulse 90; Resp 17; Pulse Ox 99% on R/A; hb 13:03 BP 139 / 78; Pulse 83; Resp 15; Pulse Ox 100% on R/A; Pain 0/10; hb 16:45 BP 129 / 77; Pulse 86; Resp 14; Pulse Ox 100% on R/A; Pain 0/10; hb NIH Stroke Scale Scores: 10:56 NIHSS Score: 2 kdr 11:18 NIHSS Score: 4 hb 11:19 NIHSS Score: 4 kdr MDM: 12:40 Patient medically screened. kdr 17:50 Data reviewed: vital signs, nurses notes, lab test result(s), EKG, radiologic studies. [facility] 09/14 10:54 Order name: Basic Metabolic Panel [facility] 09/14 10:54 Order name: CBC with Diff 09/14 10:54 Order name: Hepatic Function [facility] 09/14 10:54 Order name: High Sensitivity Troponin kdr 09/14 10:54 Order name: Magnesium kdr 09/14 10:54 Order name: Protime (+inr) [facility] 09/14 10:54 Order name: Ptt, Activated kdr 09/14 11:26 Order name: CBC with Automated Diff; Complete Time: 11:38 EDMS 09/14 11:28 Order name: Protime (+INR); Complete Time: 11:38 EDMS 09/14 11:28 Order name: PTT, Activated Partial Thromb; Complete Time: 11:38 EDMS 09/14 11:38 Order name: Urine Culture kdr 09/14 11:56 Order name: Urine Dipstick-Ancillary; Complete Time: 12:14 EDMS 09/14 12:38 Order name: Basic Metabolic Panel; Complete Time: 13:42 EDMS 09/14 12:38 Order name: Liver (Hepatic) Function; Complete Time: 13:42 EDMS 09/14 10:54 Order name: CT Stroke Brain w/o Contrast [facility] 09/14 10:54 Order name: Stroke CXR 1 View kdr 09/14 11:10 Order name: CT; Complete Time: 11:38 [facility] 09/14 11:19 Order name: CT Head Angio [facility] 09/14 11:19 Order name: CT Neck Angio [facility] 09/14 11:59 Order name: RAD; Complete Time: 12:14 [facility] 09/14 12:38 Order name: Troponin High Sensitivity; Complete Time: 13:42 [facility] 09/14 12:38 Order name: Magnesium; Complete Time: 13:42 [facility] 09/14 12:40 Order name: CT; Complete Time: 13:42 [facility] 09/14 12:43 Order name: CT; Complete Time: 13:42 [facility] 09/14 12:59 Order name: SARS RAPID eb 09/14 13:39 Order name: SARS-COV-2 Antigen Rapid; Complete Time: 13:42 [facility] 09/15 02:57 Order name: Lipid Profile [facility] 09/15 10:15 Order name: MRI [facility] 09/15 10:24 Order name: MRI [facility] 09/15 10:27 Order name: MRI [facility] 09/14 10:54 Order name: EKG; Complete Time: 10:55 [facility] 09/14 10:54 Order name: Accucheck; Complete Time: 11: [facility] 09/14 10:54 Order name: Cardiac monitoring; Complete Time: 11: [facility] 09/14 10:54 Order name: EKG - Nurse/Tech; Complete Time: 11: [facility] 09/14 10:54 Order name: IV Saline Lock; Complete Time: 11: [facility] 09/14 10:54 Order name: Labs collected and sent; Complete Time: 11: [facility] 09/14 10:54 Order name: NPO; Complete Time: 11: [facility] 09/14 10:54 Order name: O2 Per Protocol; Complete Time: 11: [facility] 09/14 10:54 Order name: O2 Sat Monitoring; Complete Time: 11: [facility] 09/14 10:54 Order name: Stroke Swallow Screen; Complete Time: 11: [facility] 09/14 11:38 Order name: Urine Dipstick-Ancillary (obtain specimen); Complete Time: 11:55 [facility] 09/14 11:46 Order name: Labs - recollect needed: recollect green top/ hemolyzed per lab; Complete eb Time: 12:14 Administered Medications: 11:18 Drug: TNK FOR STROKE - Tenecteplase 0.25 mg/kg {Co-Signature: ll1 (Rodrick Bonilla hb RN).} Route: IV; Rate: per protocol; Site: right antecubital; 13:33 Drug: Bactrim (trimethoprim-sulfamethoxazole) (160 mg-800 mg (DS) 1 tablet Route: PO; hb 13:55 Drug: Potassium Chloride 20 mEq Route: IV; Rate: calculated rate; Site: right hb antecubital; 13:55 Drug: Potassium Chloride Liquid 40 mEq Route: PO; hb Point of Care Testing: Blood Glucose: 10:49 Blood Glucose: 118 mg/dL; hb Ranges: Critical Glucose Levels:Adult <50 mg/dl or >400 mg/dl <40 mg/dl or >180 mg/dl Disposition Summary: 09/14/22 12:40 Hospitalization Ordered Hospitalization Status: Inpatient Admission kdr Provider: Shady Granda Condition: Fair kdr Problem: new kdr Symptoms: have improved kdr Bed/Room Type: Standard kdr Location: Telemetry/MedSurg (Inpatient)(09/15/22 12:13) [facility] Room Assignment: 218(09/15/22 12:13) ja Diagnosis - Aphasia kdr - Dysarthria kdr - UTI/ Urinary tract infection, site not specified kdr Forms: - Medication Reconciliation Form kdr - SBAR form kdr NIH Stroke Scale - NIH Stroke Score Date: 09/14/2022 Time: 10:56 Total Score = 2 1a. Level of Consciousness (LOC) - 0(Alert) 1b. Level of Consciousness (LOC) (Month \T\ Age) - 0(Both) 1c. LOC Commands (Open \T\ Closes Eyes/Naturalist) - 0(Both) 2. Best Gaze (Lateral Gaze Paresis) - 0(Normal) 3. Visual Field Loss - 0(No visual loss) 4. Facial Palsy - 0(Normal) 5a. Left Arm: Motor (10-second hold) - 0(No drift) 5b. Right Arm: Motor (10-second hold) - 0(No drift) 6a. Left Leg: Motor (5-second hold - always test supine) - 0(No drift) 6b. Right Leg: Motor (5-second hold - always test supine) - 0(No drift) 7. Limb Ataxia (finger/nose \T\ heel/thomson - test with eyes open) - 0(Absent) 8. Sensory Loss (pinprick arms/legs/face) - 0(Normal) 9. Best Language: Aphasia (description/naming/reading) - 1(Mild to moderate aphasia) 10. Dysarthria (speech clarity - read or repeat words) - 1(Mild to Moderate) 11. Extinction and Inattention (visual/tactile/auditory/spatial/personal) - 0(No abnormality) Initials: [facility] NIH Stroke Scale - NIH Stroke Score Date: 09/14/2022 Time: :18 Total Score = 4 1a. Level of Consciousness (LOC) - 0(Alert) 1b. Level of Consciousness (LOC) (Month \T\ Age) - 0(Both) 1c. LOC Commands (Open \T\ Closes Eyes/Naturalist) - 0(Both) 2. Best Gaze (Lateral Gaze Paresis) - 0(Normal) 3. Visual Field Loss - 0(No visual loss) 4. Facial Palsy - 0(Normal) 5a. Left Arm: Motor (10-second hold) - 0(No drift) 5b. Right Arm: Motor (10-second hold) - 1(Drift) 6a. Left Leg: Motor (5-second hold - always test supine) - 0(No drift) 6b. Right Leg: Motor (5-second hold - always test supine) - 1(Drift) 7. Limb Ataxia (finger/nose \T\ heel/thomson - test with eyes open) - 0(Absent) 8. Sensory Loss (pinprick arms/legs/face) - 0(Normal) 9. Best Language: Aphasia (description/naming/reading) - 1(Mild to moderate aphasia) 10. Dysarthria (speech clarity - read or repeat words) - 1(Mild to Moderate) 11. Extinction and Inattention (visual/tactile/auditory/spatial/personal) - 0(No abnormality) Initials: NIH Stroke Scale - NIH Stroke Score Date: 09/14/2022 Time: Total Score = 4 1a. Level of Consciousness (LOC) - 0(Alert) 1b. Level of Consciousness (LOC) (Month \T\ Age) - 0(Both) 1c. LOC Commands (Open \T\ Closes Eyes/Naturalist) - 0(Both) 2. Best Gaze (Lateral Gaze Paresis) - 0(Normal) 3. Visual Field Loss - 0(No visual loss) 4. Facial Palsy - 0(Normal) 5a. Left Arm: Motor (10-second hold) - 0(No drift) 5b. Right Arm: Motor (10-second hold) - 1(Drift) 6a. Left Leg: Motor (5-second hold - always test supine) - 0(No drift) 6b. Right Leg: Motor (5-second hold - always test supine) - 1(Drift) 7. Limb Ataxia (finger/nose \T\ heel/thomson - test with eyes open) - 0(Absent) 8. Sensory Loss (pinprick arms/legs/face) - 0(Normal) 9. Best Language: Aphasia (description/naming/reading) - 1(Mild to moderate aphasia) 10. Dysarthria (speech clarity - read or repeat words) - 1(Mild to Moderate) 11. Extinction and Inattention (visual/tactile/auditory/spatial/personal) - 0(No abnormality) Initials: kdr Signatures: Dispatcher [employer] EDMS Benton Cazares MD MD [facility] Charisse Suarez, RN RN Aureliano Redmond RN RN ja1 Emily Zaragoza Lynsay, RN RN ll1 Rodrick Bonilla RN ll1 Corrections: (The following items were deleted from the chart) 16:44 12:40 Telemetry/MedSurg (Inpatient) kdr 16:44 12:40 kdr 09/15 12:13 09/14 16:44 [facility] ER HOLD hb ja1 09/15 12:13 09/14 16:44 ERHOLD- hb ja1
--- NOTE | 2022-09-14 12:42 | RAD REPORT ---
EXAM DESCRIPTION: CTHead angio09/14/2022 12:17 pm CLINICAL HISTORY: aphasia COMPARISON: None TECHNIQUE: CT angiogram of the head was obtained. 3D MIPS reconstruction performed. All CT scans are performed using dose optimization technique as appropriate and may include automated exposure control or mA/KV adjustment according to patient size. FINDINGS: The basilar, internal carotid, anterior cerebral, middle cerebral and posterior cerebral a rteries do not demonstrate a significant abnormality An aneurysm is not seen A significant stenosis is not noted. IMPRESSION: No acute abnormality is displayed
--- NOTE | 2022-09-14 12:51 | P.HP ---
Certification for Inpatient With expected LOS: >2 Midnights Patient will require the following post-hospital care: Rehabilitation Practitioner: I am a practitioner with admitting privileges, knowledge of patient current condition, hospital course, and medical plan of care. Services: Services provided to patient in accordance with Admission requirements found in Title 42 Section 412.3 of the Code of Federal Regulations Patient History Date of Service: 09/14/22 Reason for admission: Stroke History of Present Illness: Age 62 previously well visiting here from [place] Sudden onset of right-sided expressive dysphagia and weakness of her right arm woke up around 830 developed the symptoms around 930 while eating Jell-O also has some weakness on her right leg came here to the emergency room and was treated with TNK currently her speech is about 90% better some mild expressive dysphagia she has weakness of her right arm and right leg right arm seems to be little worse she can only abduct to about 90 degrees some slight drift of both right arm and right leg however no other deficit detected very alert responsive cooperative denies any problems with swallowing Allergies ambrisentan [From Letairis] Allergy (Verified 09/07/22 01:48) Hives/Rash amlodipine [From Norvasc] Allergy (Verified 09/07/22 01:48) Hives/Rash cephalexin [From Keflex] Allergy (Verified 09/07/22 01:48) Hives/Rash ciprofloxacin [From Cipro] Allergy (Verified 09/07/22 01:48) Hives/Rash Penicillins Allergy (Verified 09/06/22 23:45) Rash Home Medications: Ascorbic Acid [Vitamin C] 1,000 mg PO DAILY 09/07/22 Calcium Carbonate [Calcium] 1,200 mg PO DAILY 09/07/22 Diclofenac Sodium [Voltaren Arthritis Pain] 20 gm TOP PRN 09/07/22 Levothyroxine Sodium [Levothyroxine] 175 mcg PO DAILY 09/07/22 Loratadine [Claritin*] 10 mg PO DAILY 09/07/22 Macitentan [Opsumit] 10 mg PO NOON 09/07/22 Metoclopramide HCl 5 mg PO ACHS #120 tab 09/07/22 Metoclopramide [Reglan*] 5 mg PO ACHS #120 tab 09/07/22 Nortriptyline HCl [Pamelor] 50 mg PO BEDTIME 09/07/22 Ondansetron [Zofran] 4 mg PO Q6H PRN #20 tab 09/07/22 Potassium Chloride 2 tab PO BID 09/07/22 Riociguat [Adempas] 2.5 mg PO TID 09/07/22 Spironolactone 50 mg PO BID 09/07/22 Topiramate 100 mg PO TID 09/07/22 Zinc Gluconate [Zinc] 50 mg PO DAILY 09/07/22 predniSONE [Deltasone] 20 mg PO DAILY #5 tab 09/07/22 - Past Medical/Surgical History Diabetic: No -: Cirrhosis -: Pulmonary Hypertension, severe on triple therapy including prostacyclin IV -: Rheumatoid Arthritis -: Hypothyroidism -: Stroke SP TNK 09/14/2022 -: Cholecystectomy -: Appendectomy -: Hysterectomy -: Pancreatic Biopsies Psychosocial/ Personal History: Patient is . - Family History Father -: Heart disease Mother -: Other (see notes) Notes: Dementia - Social History Alcohol use: No CD- Drugs: No Caffeine use: Yes Review of Systems 10-point ROS is otherwise unremarkable General: Weakness Physical Examination - Vital Signs Temperature: 97.8 F Blood Pressure: 146/71 Pulse: 95 Respirations: 18 Pulse Ox (%): 99 (RA) - Physical Exam General: Alert, In no apparent distress, Oriented x3 HEENT: Atraumatic Neck: Supple, 2+ carotid pulse no bruit Respiratory: Clear to auscultation bilaterally, Normal air movement Cardiovascular: No edema, Regular rate/rhythm Gastrointestinal: Normal bowel sounds, Soft and benign Musculoskeletal: No clubbing, No swelling, No warmth Neurological: Cranial nerves 3-12 intact, Abnormal speech (Slight expressive dysphagia which is improved), Abnormal strength (Mild weakness of the right arm and the right leg with a slight drift level 1) - Studies Laboratory Data (last 24 hrs) 09/14/22 11:55: Sodium 141, Potassium 2.5 L*, BUN 4 L, Creatinine 0.65, Glucose 106, Magnesium 2.2, Total Bilirubin 1.4 H, AST 45 H, ALT 38, Alkaline Phosphatase 73 09/14/22 11:10: PT 14.5 H, INR 1.32, APTT 31.6 09/14/22 11:10: WBC 6.80, Hgb 13.1, Hct 38.4, Plt Count 130 L Assessment and Plan - Problems (Diagnosis) (1) Stroke Current Visit: Yes Status: Acute Plan: Age 62 admitted with expressive dysphagia and right-sided weakness expressive dysphagia has improved significantly he has still still has some weakness right arm more so than the right leg is now able to communicate had difficulty finding her words initially patient is s/p TNK patient is on diuretics has severe pulmonary hypertension managed by physician in [place] on triple therapy for pulmonary hypertension no pulmonary complaints plan to admit n.p.o. speech evaluation possible rehab neurology consult MRI no abnormalities detected on CT scans Qualifiers: Precerebral and cerebral artery: unspecified cerebral artery - Advance Directives Does patient have a Living Will: Yes Does patient have a Durable POA for Healthcare: Yes
[2022-09-14] MEDS: NA CHLORIDE 0.9% 1,000 ML IV SCH (13:00)
[2022-09-14] MEDS ORDERED: SMZ./TMP. 800/160 MG TABLET ONE (13:34)
[2022-09-14 13:39] LABS: SARS-CoV-2 Antigen Rapid Res Negative (Negative)
[2022-09-14] MEDS ORDERED: POTASSIUM CL SA 10 MEQ TAB PO ONE (13:47)
[2022-09-14] MEDS ORDERED: NA CHLORIDE 0.9% 1,000 ML ONE (13:47)
[2022-09-14] MEDS ORDERED: KCL 20 MEQ/100 mL IVPB 100 ML IV ONE (13:48)
[2022-09-14 16:52] VITALS: BMI 32.5
[2022-09-15] MEDS ORDERED: NA CHLORIDE 0.9% 1,000 ML ONE (01:50)
[2022-09-15] MEDS: NA CHLORIDE 0.9% 1,000 ML IV SCH ×3 (02:20→20:36)
[2022-09-15] MEDS ORDERED: LORazepam 2 MG/ML VIAL ONE (08:00)
[2022-09-15] MEDS ORDERED: LORazepam 2 MG/ML VIAL IV PRN (08:08)
--- NOTE | 2022-09-15 10:14 | RAD REPORT ---
EXAM DESCRIPTION: MRI - Brain W/Wo Cont - 09/15/2022 9:48 am CLINICAL HISTORY: Right-sided weakness aphasia COMPARISON: head CT September 14, 2022 TECHNIQUE: Axial, sagittal, and coronal magnetic images of the brain were obtained. 18 cc MultiHance administered intravenously FINDINGS: Mild signal within periventricular, deep and subcortical white matter probably ischemic ch anges secondary to small vessel disease The ventricles are normal in caliber. Diffusion-weighted/ ADC mapping sequences do not demonstrate evidence of an acute infarction. No abnormal enhancement within the brain is seen. An extra-axial fluid collection is not noted. Fluid within the sinuses/mastoids is not seen IMPRESSION: No acute intracranial abnormality displayed
--- NOTE | 2022-09-15 10:24 | RAD REPORT ---
EXAM DESCRIPTION: MRI - MRA Neck W/Wo Cont - 09/15/2022 9:49 am CLINICAL HISTORY: Right-sided weakness/ aphasia COMPARISON: CT September 14, 2022 TECHNIQUE: Magnetic resonance angiogram of the neck was performed. 19 cc MultiHance was administered intravenously. 3D MIPS reconstruction performed FINDINGS: Great vessels unremarkable The common carotid, internal carotid and external carotid arteries do not demonstrate significant mago que. Distal right vertebral artery is hypoplastic. The vertebral arteries appear unremarkable No dissections seen IMPRESSION: No significant abnormality is displayed NASCET criteria used. Mild 0-49% stenosis Moderate 50-69% stenosis Severe 70-99% stenosis
--- NOTE | 2022-09-15 10:26 | RAD REPORT ---
EXAM DESCRIPTION: MRI - MRA Head Wo Cont - 09/15/2022 9:48 am CLINICAL HISTORY: Right-sided weakness/ aphasia COMPARISON: CT September 14, 2022 TECHNIQUE: Magnetic resonance angiogram was performed. 3D MIPS reconstruction performed FINDINGS: Evaluation is somewhat limited secondary to motion artifact. Distal internal carotid, basilar, and anterior cerebral arteries do not demonstrate a significant kisha nosis. Evaluation of portions of the middle and posterior cerebral arteries limited. An aneurysm not seen. IMPRESSION: Examination is somewhat limited without visualization of a significant acute abnormality
--- NOTE | 2022-09-15 12:37 | EKG ---
Test Date: 2022-09-14 Test Time: 11:19:10 Green Prize Packer: YANICK MEASUREMENT RESULTS: Intervals: Rate: 92 OK: 170 QRSD: 100 QT: 388 QTc: 479 Mandan: P: 47 OK: 170 QRS: 22 T: 12 INTERPRETIVE STATEMENTS: Normal sinus rhythm Incomplete right bundle branch block ST & T wave abnormality, consider anterior ischemia Prolonged QT Abnormal ECG Compared to ECG 09/06/2022 22:34:00 Possible ischemia now present Prolonged QT interval now present ST (T wave) deviation still present Electronically Signed On 09-15-22 12:35:39 EARLY CHILDHOOD EDUCATION INSTRUCTOR by Byron Stacy
[2022-09-16 03:46] LABS: Absolute Lymphocytes (CBC) 1.5 K/uL (0.7-4.9); Hematocrit 37.3 % (36.0-45.0); Lymphocytes % 21.6 % (15.3-44.8); MCV 91.5 fL (80-100); MPV 8.5 fL (7.6-11.3); RBC Red Blood Cell Count 4.08 M/uL (3.86-4.86)
[2022-09-16 04:00] LABS: Albumin 3.4 g/dL (3.4-5.0); Bilirubin Total 2.4 mg/dL (0.2-1.0); Protein, Total 6.8 g/dL (6.4-8.2)
[2022-09-16 04:01] LABS: Potassium 2.6 mmol/L (3.5-5.1)
[2022-09-16] MEDS: ACETAMINOPHEN 325 MG TABLET PO PRN ×4 (04:25→22:04)
--- NOTE | 2022-09-16 05:14 | P.PN ---
Date of Service: 09/16/22 Received a call that patient was found in her room sitting on the floor, states that she was trying to find her call light. No obvious injuries/deformities noted however she was complaining of pain to her right knee and some dizziness. Nursing staff reports her responses to questions were delayed however I am unable to fully assess as I am unfamiliar with patient's baseline. I went ahead and ordered a head CT and knee xray, which were both negative for acute findings. Bed alarm now ordered as well as fall precautions in place. Vitals stable. Family notified.
[2022-09-16] MEDS: KCL 20 MEQ/100 mL IVPB 20 MEQ/100 ML BAG IV SCH ×3 (08:49→12:45)
[2022-09-16] MEDS ORDERED: ONDANSETRON 4 MG (ODT) TAB PO PRN (09:04)
[2022-09-16] MEDS ORDERED: HYDROCORTISONE SUC 100 MG INJ IV ONE (09:55)
[2022-09-16] MEDS: LEVOTHYROXINE SOD 0.075 MG TAB PO SCH (10:21)
[2022-09-16] MEDS: LEVOTHYROXINE SOD 0.1 MG TAB PO SCH (10:21)
[2022-09-16] MEDS: METOCLOPRAMIDE 5 MG TAB PO SCH ×3 (11:03→22:04)
[2022-09-16] MEDS: NA CHLORIDE 0.9% 1,000 ML IV SCH (11:05)
[2022-09-16] MEDS: RIOCIGUAT 2.5 MG PO SCH ×2 (14:00→21:00)
[2022-09-16] MEDS: TOPIRAMATE 100 MG TAB PO SCH ×2 (14:55→22:03)
--- NOTE | 2022-09-16 16:18 | RAD REPORT ---
EXAM DESCRIPTION: CT Head Without Intravenous Contrast CLINICAL HISTORY: The patient is 62 years old and is Female; fall TECHNIQUE: Axial computed tomography images of the head/brain without intravenous contrast. Sagitt al and coronal reformatted images were created and reviewed. This CT exam was performed using one o r more of the following dose reduction techniques: automated exposure control, adjustment of the mA and/or kV according to patient size, and/or use of iterative reconstruction technique. COMPARISON: No relevant prior studies available. FINDINGS: Brain: Unremarkable. No hemorrhage. No significant white matter disease. No edema. Ventricles: Unremarkable. No ventriculomegaly. Bones/joints: Unremarkable. No acute fracture. Soft tissues: Unremarkable. Sinuses: Unremarkable as visualized. Mastoid air cells: Unremarkable as visualized. No mastoid effusion. IMPRESSION: No acute intracranial abnormality. Electronically signed by: Milan Thurston MD 09/16/2022 3:52 AM ELECTRICAL AND ELECTRONIC ASSEMBLER Due to temporary technical issues with the PACS/Fluency reporting system, reports are being signed by the in house radiologists without review as a courtesy to insure prompt reporting. The interpreting radiologist is fully responsible for the content of the report.
--- NOTE | 2022-09-16 16:28 | RAD REPORT ---
EXAM DESCRIPTION: XR Right Knee, 3 Views CLINICAL HISTORY: fall, pain TECHNIQUE: Three views of the right knee. COMPARISON: No relevant prior studies available. FINDINGS: Bones/joints: Mild tricompartmental degenerative changes. No acute fracture. No disl ocation. Soft tissues: Unremarkable. IMPRESSION: No acute injury. Electronically signed by: Alfredo Ramirez MD 09/16/2022 3:33 AM AUTOMATIC EQUIPMENT TECHNICIAN Due to temporary technical issues with the PACS/Fluency reporting system, reports are being signed by the in house radiologists without review as a courtesy to insure prompt reporting. The interpreting radiologist is fully responsible for the content of the report.
[2022-09-16 16:29] VITALS: O2SAT 96
[2022-09-16] MEDS ORDERED: POTASSIUM CL SA 10 MEQ TAB PO ONE (16:49)
--- NOTE | 2022-09-16 18:56 | CON ---
Reason For Consultation: Consultation called because of a possible stroke. History Of Present Illness: Ms. Garcia is a 62-year-old right-handed patient who was in [facility], that is in [facility]. She was at home resting and actually eating some Jell-O when she de veloped sudden onset of weakness in the right upper extremity and lower extremity, mild slurred speec h, and difficulty standing and walking. Symptoms occurred around 9 a.m. on 09/14/2022. She came to [facility] and arrived at 10:47. She was evaluated as a code stroke patient and had a brain CT scan done at 11 a.m. The study was negative for any acute ischemic hemorrhagic findings. After the case was discussed, and she had no contraindications to TNKs, TNK was given to the patient. She had a CT angiogram of head and neck performed after that. Those studies showed no significant abnorm alities in the large vessels. She was admitted to the ICU for further stroke workup and also for yin romonitoring. She did not have, immediately after TNKs, any antiplatelet medication and that was res tarted 24 hours later. A brain MRI done following day on the did not show any acute ischemic or hemorrhagic stroke. The patient at that point did report, that in terms of the weakness that seemed to have resolved, although she did have diffuse weakness after that and did feel kind of a generaliz ed lack of energy. MRI and MRA of head and neck did not show any significant abnormalities. Her tremaine ctrocardiogram showed normal sinus rhythm with incomplete right bundle-branch block and her chest x-r ay showed clear lungs and no abnormalities. Past Medical History: Liver cirrhosis, pulmonary hypertension, rheumatoid arthritis, and hypothyroid ism. Past Surgical History: Cholecystectomy, appendectomy, hysterectomy, and pancreatic biopsy. Allergies: AMBRISENTAN CAUSES HIVES AND RASH, AMLODIPINE CAUSES HIVES AND RASH, CEPHALEXIN CAUSES HI VES AND RASH, CIPROFLOXACIN CAUSES HIVES AND RASH, AND PENICILLIN CAUSES HIVES AND RASH. Medications: At home are vitamin C, 1000 mg daily, calcium 1200 mg daily, Voltaren Arthritis Pain Re lief 20 g topical as needed, levothyroxine 175 mcg daily, Claritin 10 mg daily, Opsumit 10 mg at noon , metoclopramide 5 mg at night and 5 mg in the morning, nortriptyline 50 mg at bedtime, Zofran 4 mg q .6 hours as needed, potassium chloride 2 tablets twice daily, Adempas 2.5 mg 3 times daily, spironola ctone 50 mg twice daily topiramate 100 mg 3 times daily, zinc 50 mg daily, and prednisone 20 mg daily . Family History: Positive for heart disease in father and dementia in mother. Social History: No alcohol, tobacco, or IV drug use. Review of Systems: She reports generalized fatigue, weakness, poor energy. She does report some improvement in her abil ity to comprehend, but has slow speech. Otherwise, negative on systems review. Physical Examination: Vital Signs: Blood pressure 143/77, pulse 82, respiratory rate 14, temperature 99.7, and oxygen satu ration 96% on room air. Weight 189 pounds, height 5 feet 4 inches, BMI 32. General: Ms. Garcia is sitting in a chair beside her bed. HEENT: She is normocephalic, atraumatic. Sclerae anicteric. Oropharynx is pink and moist. Neck: Supple. Chest: Clear. Heart: Regular. Extremities: No significant clubbing, cyanosis, or edema. Neurological: She is alert and oriented, but slow to respond. She has no cranial nerve deficits. S he has no focal motor or sensory deficits. No coordination abnormalities. Reflexes are symmetric. In terms of her gait, she was able to ambulate 120 feet with standby assistance using a rolling walke r. She ascended and descended 3 steps with contact guard assistance using left hand rail. Laboratory Studies: Complete blood count with differential essentially unremarkable. INR 1.32. Laquita mistries did show significantly low potassium of 2.5, she is receiving potassium and a repeat today i s 3.0. AST slightly elevated to 59, creatinine normal at 0.62, magnesium 2.2. Urinalysis: Positive nitrite and trace of blood, pH 7.5. COVID-19 test is negative. Assessment: Ms. Garcia is a 62-year-old patient with possible stroke that involved the right side; h owever, she did receive TNKs and MRI shows no evidence of stroke and she does not have residual focal deficits. She has significant hypokalemia, which may be a contributing factor to her symptoms, whic h include diffuse weakness and slow responses and a potential urinary tract infection for which she a ctually has received hydration. No antibiotics have been given. Plan: 1.She may begin aspirin 81 mg daily. 2.Follow lipid panel, which showed HDL 49 and LDL 85 and she may have a low-dose statin. 3.Potassium replacement is important. Hypokalemia is a contributing factor to her diffuse weakness. 4.She could use outpatient physical therapy if able to be transported. She is from out of town and there may be physical therapy available close by. She should also follow up with her neurologist and primary care physician for a recheck of her potassium level within the week. YAJAIRA/DORINA Voice ID: [id number] Report ID: [id number]
[2022-09-16] MEDS ORDERED: NORTRIPTYLINE HCL 25 MG CAP PO SCH (21:00)
[2022-09-16] MEDS: POTASSIUM CL SA 10 MEQ TAB PO SCH (22:03)
[2022-09-16] MEDS: SPIRONOLACTONE 25 MG TABLET PO SCH (22:03)
[2022-09-16] MEDS: HYDROCORTISONE SUC 100 MG INJ IV SCH (22:04)
[2022-09-17] MEDS: LEVOTHYROXINE SOD 0.075 MG TAB PO SCH (05:27)
[2022-09-17] MEDS: LEVOTHYROXINE SOD 0.1 MG TAB PO SCH (05:27)
--- NOTE | 2022-09-17 05:52 | P.PN ---
Subjective Date of Service: 09/15/22 PATIENT IS DOING WELL WITH NO NEW COMPLAINTS. SHE WAS ABLE TO EAT A LITTLE SOMETHING TODAY. SYMPTOMS ARE GETTING BETTER. AND SHE IS WORKING WITH PHYSICAL THERAPY. IMAGING STUDIES ARE PENDING. Review of Systems 10-point ROS is otherwise unremarkable Physical Examination - Vital Signs Temperature: 97.4 F Blood Pressure: 114/70 Pulse: 78 Respirations: 16 Pulse Ox (%): 94 - Physical Exam General: Alert, In no apparent distress, Oriented x3 Respiratory: Clear to auscultation bilaterally, Normal air movement Cardiovascular: Regular rate/rhythm, Normal S1 S2 Gastrointestinal: Normal bowel sounds, Soft and benign, Non-distended, No tenderness Musculoskeletal: No tenderness Integumentary: No rashes Neurological: Sensation intact, Cranial nerves 3-12 intact - Studies Medications List Reviewed: Yes Assessment & Plan - Problems (Diagnosis) (1) Stroke Current Visit: Yes Status: Acute Qualifiers: Precerebral and cerebral artery: unspecified cerebral artery (2) Dehydration Current Visit: No Status: Acute (3) Hypokalemia Current Visit: No Status: Acute (4) Cirrhosis of liver Current Visit: No Status: Chronic Qualifiers: Hepatic cirrhosis type: unspecified hepatic cirrhosis (5) Hypothyroidism Current Visit: No Status: Chronic Qualifiers: Hypothyroidism type: acquired Qualified Code(s): E03.9 - Hypothyroidism, unspecified - Plan 1. MRI OF THE BRAIN 2. ANTIPLATELET THERAPY & STATIN 3. REGLAN 4. NEUROLOGY CONSULTATION APPRECIATED 5. PHYSICAL THERAPY/OCCUPATIONAL THERAPY/SPEECH THERAPY EVALUATION 6. DVT PROPHYLAXIS Discharge Plan: Home Plan to discharge in: Greater than 2 days - Advance Directives Does patient have a Living Will: Yes Does patient have a Durable POA for Healthcare: Yes - Code Status/Comfort Care Code Status Assessed: Yes Code Status: Full Code Critical Care: No Time Spent Managing PTS Care (In Minutes): 35
--- NOTE | 2022-09-17 05:53 | P.PN ---
Date of Service: 09/16/22 Subjective PATIENT IS DOING WELL WITH NO NEW COMPLAINTS. SHE WAS ABLE TO EAT A LITTLE SOMETHING TODAY. SYMPTOMS ARE GETTING BETTER. AND SHE IS WORKING WITH PHYSICAL THERAPY. IMAGING STUDIES ARE PENDING. Review of Systems 10-point ROS is otherwise unremarkable Physical Examination - Vital Signs REVIEWED - Physical Exam General: Alert, In no apparent distress, Oriented x3 Respiratory: Clear to auscultation bilaterally, Normal air movement Cardiovascular: Regular rate/rhythm, Normal S1 S2 Gastrointestinal: Normal bowel sounds, Soft and benign, Non-distended, No tenderness Neurological: Sensation intact, Cranial nerves 3-12 intact - Studies Medications List Reviewed: Yes Assessment & Plan - Problems (Diagnosis) (1) Stroke Current Visit: Yes Status: Acute Qualifiers: Precerebral and cerebral artery: unspecified cerebral artery (2) Dehydration Current Visit: No Status: Acute (3) Hypokalemia Current Visit: No Status: Acute (4) Cirrhosis of liver Current Visit: No Status: Chronic Qualifiers: Hepatic cirrhosis type: unspecified hepatic cirrhosis (5) Hypothyroidism Current Visit: No Status: Chronic Qualifiers: Hypothyroidism type: acquired Qualified Code(s): E03.9 - Hypothyroidism, unspecified - Plan CONTINUE WITH POC MENTIONED BELOW: 1. MRI OF THE BRAIN 2. ANTIPLATELET THERAPY & STATIN 3. REGLAN 4. NEUROLOGY CONSULTATION APPRECIATED 5. PHYSICAL THERAPY/OCCUPATIONAL THERAPY/SPEECH THERAPY EVALUATION 6. DVT PROPHYLAXIS
[2022-09-17 06:31] LABS: Absolute Lymphocytes (CBC) 0.8 K/uL (0.7-4.9); Hematocrit 36.8 % (36.0-45.0); Lymphocytes % 11.6 % (15.3-44.8); MPV 8.6 fL (7.6-11.3); RBC Red Blood Cell Count 4.04 M/uL (3.86-4.86)
[2022-09-17 06:32] LABS: Protime INR 1.46
[2022-09-17 06:41] LABS: Albumin 3.2 g/dL (3.4-5.0); Bilirubin Total 1.8 mg/dL (0.2-1.0); Potassium 3.4 mmol/L (3.5-5.1); Protein, Total 6.6 g/dL (6.4-8.2)
[2022-09-17] MEDS: METOCLOPRAMIDE 5 MG TAB PO SCH ×2 (07:55→12:05)
[2022-09-17] MEDS: POTASSIUM CL SA 10 MEQ TAB PO SCH (08:04)
[2022-09-17] MEDS: SPIRONOLACTONE 25 MG TABLET PO SCH (08:05)
[2022-09-17] MEDS: TOPIRAMATE 100 MG TAB PO SCH ×2 (08:05→14:01)
[2022-09-17] MEDS: RIOCIGUAT 2.5 MG PO SCH ×2 (08:06→13:58)
[2022-09-17] MEDS: HYDROCORTISONE SUC 100 MG INJ IV SCH (08:06)
[2022-09-17] MEDS ORDERED: HOME MED 1 EA UNK (Levothyroxine Sodium [Levothyroxine] 175 MCG Capsule) PO SCH (09:00)
[2022-09-17 09:15] VITALS: BP 146/79; TEMP 98.1
== END 2022-09-17 14:50 | disposition home health service (06) | DRG 62 ==
LOC: ER 10:46 → ERHOLD 12:48 → 2ND 09-15 13:06
PROVIDERS: ADMIT Internal Medicine Sleep Medicine; ATTEND Hospitalist
DX: I63.10 Cerebral infarction due to embolism of unspecified precerebral artery (principal); G81.91 Hemiplegia, unspecified affecting right dominant side; N39.0 Urinary tract infection, site not specified; R47.01 Aphasia; E03.9 Hypothyroidism, unspecified; M06.9 Rheumatoid arthritis, unspecified; E86.0 Dehydration; K74.60 Unspecified cirrhosis of liver; E87.6 Hypokalemia; I27.20 Pulmonary hypertension, unspecified; R29.702 NIHSS score 2; R47.81 Slurred speech; R13.10 Dysphagia, unspecified; Z88.0 Allergy status to penicillin; Z88.1 Allergy status to other antibiotic agents; Z88.8 Allergy status to other drugs, medicaments and biological substances; Z90.49 Acquired absence of other specified parts of digestive tract; Z79.52 Long term (current) use of systemic steroids; Z79.899 Other long term (current) drug therapy; Z79.890 Hormone replacement therapy; Z90.710 Acquired absence of both cervix and uterus; Z20.822 Contact with and (suspected) exposure to COVID-19
CPT/HCPCS: 36415; 70450; 70496; 70498; 70544; 70549; 70553; 71045; 80048; 80053; 80061; 80076; 81003; 83735; 84132; 84484; 85025; 85610; 85730; 87811; 92977; 93005; 96374; 96375; 97116; 97161; 97530; 99291; A9577; J1720; J3101; J3480; J7030; Q9967